=== PATIENT | male | born 1940 | race Caucasian/White ===

== ENCOUNTER 2017-04-28 09:38 | Outpatient (CLI) | payer MEDICARE ==
--- NOTE | 2017-04-28 10:37 | RAD ---
THREE LUMBAR SPINE FLEXION AND EXTENSION VIEWS: HISTORY: M48.061 (lumbar spine stenosis). COMPARISON: None available. FINDINGS: No fracture. No malalignment. Moderate degenerative disk space height loss at L3-L4, L4-L5, and L5- S1. There are large anterior bridging osteophytes throughout the lumbar spine. Severe degenerative disease of the spinous processes from L2-L4. Posterior disk-osteophyte complexes at L3-L4, L4-L5, and L5-S1. No translation with flexion or extension. With extension there is abutment of the L2-L4 spinous proc esses. IMPRESSION: 1. Degenerative changes without translation with flexion or extension. 2. With extension, there is abutment of the spinous processes at L2-L4. POS: [facility]
--- NOTE | 2017-04-28 11:39 | MRI ---
MRI LUMBAR SPINE: 04/28/2017 PROVIDED CLINICAL HISTORY: Spinal stenosis. CORRELATION: Concurrently performed radiographs. FINDINGS: Five [id number] lumbar-type vertebral bodies are demonstrated. Lumbar alignment appears normal. Vertebral body heights appear preserved. No focal concerning regional marrow signal abnormality is evident. Endplate degenerative changes with related marrow signal alteration are seen at L4-L5. Th e conus medullaris is normal in signal and terminates at an appropriate level. The visualized extras aidan soft tissues appear unremarkable. T12-L1: There is no significant central canal or foraminal narrowing apparent. L1-L2: There is bilateral facet arthritis without significant central canal or foraminal narrowing a pparent. L2-L3: There is bilateral facet arthritis without significant central canal or foraminal narrowing a pparent. L3-L4: There is disk space height loss and a broad-based disk bulge, as well as bilateral facet arth ritis. There is mild to moderate central canal stenosis and severe right foraminal narrowing. There is mild left foraminal narrowing. L4-L5: There is disk space narrowing and a broad-based disk bulge, as well as bilateral facet arthri tis. There is severe central canal stenosis. There is severe bilateral foraminal narrowing. L5-S1: There is disc space height loss and a broad-based disk bulge. There is bilateral facet arthr itis. There is no significant central canal narrowing apparent. There is left-sided foraminal narro wing, moderate. IMPRESSION: Advanced lumbar disk and facet degenerative changes producing areas of canal and foraminal narrowing, as described above. POS: [facility]
== END 2017-04-28 09:39 | disposition home or self-care (01) ==
LOC: TBSIIMAG 09:38
PROVIDERS: ATTEND Neurological Surgery
DX: M48.061 Spinal stenosis, lumbar region without neurogenic claudication (principal); M47.896 Other spondylosis, lumbar region; M51.36 Other intervertebral disc degeneration, lumbar region
CPT/HCPCS: 72100; 72148

== ENCOUNTER 2017-06-02 08:09 | Outpatient (CLI) | payer MEDICARE ==
--- NOTE | 2017-06-02 09:18 | RAD ---
LUMBAR SPINE THREE VIEWS: History: Low back pain. FINDINGS: Lateral views include flexion and extension positioning. Vertebral body heights are maintained. Disc space narrowing is most pronounced at the L3-4 and L4-5 levels. Prominent osteophytosis is present th roughout the vertebral bodies and facets. No abnormal translational motion is evident upon flexion or extension although there is limited motion. Calcification is apparent within the arterial structures. IMPRESSION: 1. Prominent lumbar spondylosis. 2. Atherosclerosis. POS: [facility]
--- NOTE | 2017-06-02 09:47 | MRI ---
MRI OF THE CERVICAL SPINE: Date: 06-02-17 Comparison: None. History: Neck pain for several years. Technique: Multiplanar, multisequence MR imaging of the cervical spine is provided without contrast. FINDINGS: Detailed assessment of the cervical spine is significantly limited on the basis of motion artifact. M otion artifact limits all of the provided axial sequences. There is also significant motion artifact limiting detailed assessment of sagittal imaging, particularly the STIR sequence. The STIR imaging demonstrates no discrete focal area of osseous marrow edema. Minimal anterolisthesis suspected at the C4-5 level. There is moderate degenerative change at the atlantoaxial interspace. C2-3: There is disc space narrowing, disc desiccation, minimal disc bulge and anterior osteophyte for mation. No significant central canal or neural foraminal stenosis. Bilateral facet hypertrophy noted. C3-4: Disc space narrowing, disc desiccation, and mild disc bulge present with probable at least mild central canal stenosis. Bilateral facet hypertrophy noted. Bilateral neural foraminal stenosis is barakat spected, difficult to assess secondary to motion. C4-5: There is disc space narrowing, disc desiccation and mild disc bulge. At least mild central jada l stenosis is noted. Bilateral facet and uncal vertebral osteophyte formation with significant bilate ral neural foraminal stenosis suspected, limited in assessment secondary to motion. C5-6: There is disc space narrowing, disc desiccation, anterior osteophyte formation, and disc bulge with at least mild central canal stenosis. There is prominent bilateral facet and uncal vertebral ost eophyte formation with significant bilateral neural foraminal stenosis, not optimally assessed on the basis of motion. C6-7: There is disc space narrowing, disc desiccation, and disc bulge effacing the ventral thecal sac . There is moderate central canal stenosis. There is facet and uncal vertebral osteophyte formation, right greater than left, with prominent bilateral neural foraminal stenosis. There is anterior osteop hyte formation. C7-T1: There is disc space narrowing, disc desiccation and disc bulge with mild central canal stenos is. Bilateral facet and uncal vertebral osteophyte formation noted, right greater than left, with mod erate/severe right and mild left neural foraminal stenosis. No focal area of abnormal signal intensity is identified within the cervical cord. IMPRESSION: There is significant multilevel degenerative change seen within the cervical spine. Multilevel signif icant bilateral neural foraminal stenosis is noted. The degree of central canal and/or neural foramin al stenosis is limited secondary to motion. Follow up imaging/repeat imaging may be beneficial if the patient is able to hold still for follow up imaging. Alternatively, a cervical spine CT myelogram co uld better assess the degree of underlying central canal and neural foraminal stenosis. POS: [facility]
== END 2017-06-02 08:10 | disposition home or self-care (01) ==
LOC: TBSIIMAG 08:09
PROVIDERS: ATTEND Neurological Surgery
DX: M47.22 Other spondylosis with radiculopathy, cervical region (principal); M47.816 Spondylosis without myelopathy or radiculopathy, lumbar region; M48.02 Spinal stenosis, cervical region; M99.51 Intervertebral disc stenosis of neural canal of cervical region; I70.90 Unspecified atherosclerosis
CPT/HCPCS: 72100; 72141; 72148

== ENCOUNTER 2018-08-22 12:43 | Outpatient (CLI) | payer MEDICARE ==
--- NOTE | 2018-08-22 13:18 | RAD ---
EXAM: XR Lumbar Spine 2 Or 3 View PROVIDED CLINICAL HISTORY: Lumbar radiculopathy. Low back pain. Bilateral hip pain. COMPARISON: 06/02/2017. FINDINGS: Neutral lateral with flexion and extension views lumbar spine are provided. Multilevel degenerative c hanges of the lumbar spine are seen with prominent bridging anterior osteophytes again noted. Endplate degenerative changes are again present at the L4-5 level. There is narrowing of the interver tebral disc spaces at the L3-4, L4-5, and L5-S1 levels. The vertebral body heights are within normal limits. No fracture or subluxation is seen involving the lumbar spine. Facet degenerative ybarra ges are present in the lower lumbar spine. Vascular calcifications are again seen abdominal aorta and involving the iliac arteries. IMPRESSION: Overall stable multilevel degenerative changes lumbar spine. No subluxation is seen.
--- NOTE | 2018-08-22 13:22 | RAD ---
EXAM: XR Cerv Sp Ap Lat STANDARD PROVIDED CLINICAL HISTORY: Cervical radiculopathy. Patient with neck and back pain. COMPARISON: None FINDINGS: C1 to the cervicothoracic junction is seen on the lateral view. The T1 vertebral body is most obscure d due to overlying structures. There is trace anterolisthesis of C4 on C5 which appears to correct between flexion and extension. No definite additional level of subluxation is seen. Multilevel degene rative changes are seen throughout cervical spine. Bridging osteophytes are seen anteriorly at the C2-3 level with endplate degenerative changes and silvana rowing of the intervertebral disc space at the C3-4 level. Multilevel osteophytes are present. Interspinous distances are within normal limits. Vertebral body heights appear to be within normal li mits. Prevertebral soft tissues are within normal limits. IMPRESSION: Trace anterolisthesis of C4 on C5. Multilevel degenerative changes including prominent bridging anterior osteophyte at the C2-3 level.
== END 2018-08-22 12:44 | disposition home or self-care (01) ==
LOC: TBSIIMAG 12:43
PROVIDERS: ATTEND Neurological Surgery
DX: M47.26 Other spondylosis with radiculopathy, lumbar region (principal); M47.22 Other spondylosis with radiculopathy, cervical region; M25.78 Osteophyte, vertebrae
CPT/HCPCS: 72040; 72100

== ENCOUNTER 2018-09-12 13:09 | Outpatient (CLI) | payer MEDICARE ==
--- NOTE | 2018-09-12 14:54 | MRI ---
MRI BRAIN WITHOUT CONTRAST: Date: 09/12/18 HISTORY: Abnormality of gait and mobility. COMPARISON: 10/14/15. FINDINGS: Changes of prominent atrophy and chronic white matter ischemic are redemonstrated and essentially sta ble. Ventricular size is stable and the basilar cisterns are patent. No evidence of infarct, hemorrha ge, midline shift, or abnormal extra-axial fluid collections noted. Changes of mild paranasal sinus d isease again seen. IMPRESSION: 1. Stable exam. No acute process. 2. Cortical atrophy. 3. Chronic small vessel ischemic disease. POS: [facility]
== END 2018-09-12 13:10 | disposition home or self-care (01) ==
LOC: BICMRI 13:09
PROVIDERS: ATTEND Neurological Surgery
DX: R26.89 Other abnormalities of gait and mobility (principal); G31.9 Degenerative disease of nervous system, unspecified; I67.82 Cerebral ischemia
CPT/HCPCS: 70551

== ENCOUNTER 2018-10-05 08:36 | Day surgery (SDC) | payer MEDICARE ==
[2018-10-04 15:51] VITALS: BMI 31.5
--- NOTE | 2018-10-05 11:07 | RAD ---
FLUOROSCOPICALLY GUIDED LUMBAR PUNCTURE: HISTORY: Hydrocephalus. Radiation dosimetry is 2 minutes of fluoroscopy and DAP of 667 mGy/M2. TECHNIQUE/FINDINGS: Informed consent was obtained from the patient. The right L2-3 interlaminar space was localized using fluoroscopic guidance. The overlying skin was prepped and draped in the usual sterile manner. A 1% lidocaine solution was used to anesthetize the overlying soft tissues. A 20-gauge spinal needle was i ntroduced into the subarachnoid space using fluoroscopic guidance. Opening pressures suggests 24.5 cm of water, while closing pressures measured 12 cm of water. Openin g and closing measurements were obtained after removal of 21 mL of clear CSF. [facility] radiographs demonstrates severe multilevel areas of anterior osteophytes with disc space height loss compatible with changes of spondylosis. IMPRESSION: Successful fluoroscopically guided lumbar puncture. No complications encountered during the lumbar pu ncture. Transcribed Date/Time: 10/05/2018 11:27 AM
== END 2018-10-05 11:30 | disposition home or self-care (01) ==
LOC: RAD 08:36
PROVIDERS: ATTEND Neurological Surgery
PROC: 00JU3ZZ Inspection of Spinal Canal, Percutaneous Approach (ICD-10-PCS; principal; 2018-10-05)
DX: G91.9 Hydrocephalus, unspecified (principal); M19.90 Unspecified osteoarthritis, unspecified site; I12.9 Hypertensive chronic kidney disease with stage 1 through stage 4 chronic kidney disease, or unspecified chronic kidney disease; E11.22 Type 2 diabetes mellitus with diabetic chronic kidney disease; N18.9 Chronic kidney disease, unspecified; Z79.899 Other long term (current) drug therapy
CPT/HCPCS: 62270